=== PATIENT | male | born 1960 ===

== ENCOUNTER 2019-03-29 14:26 | Emergency (ER) | payer SELFPAY ==
[2019-03-29] MEDS ORDERED: RINGERS SOLUTION,LACTATED 1,000 ML IV ONE (14:42)
--- NOTE | 2019-03-29 14:51 | ER Document Report ---
ED General - General Chief Complaint: Altered Mental Status Stated Complaint: ALTERED MENTAL STATUS Time Seen by Provider: 03/29/19 14:37 Mode of Arrival: Medic Information source: Patient, Friend, Emergency Med Personnel Notes: 59-year-old male with hypertension (noncompliant with medications) presents via EMS with altered mental status. The patient's friend came to the house who found the patient confused, altered and called 911. Patient is slow to respond but answers questions appropriately. He is currently complaining of back pain. Patient states that last week he fell outside of [facility] and required help getting up but felt fine otherwise. Unclear whether the patient hit his head or not. He denies any recent illness, vomiting, chest pain, shortness of breath, headache, weakness. Patient does admit to drinking about 4-5 beers per day. He has not drank anything today. He denies any tobacco or drug use. Patient was found on the floor of his home by his friend and now states that he is not sure how long he had been laying there. TRAVEL OUTSIDE OF THE [place] IN LAST 30 DAYS: No - HPI Onset: Other Onset/Duration: Gradual Quality of pain: Achy Severity: Mild Associated symptoms: Body/muscle aches, Slow to respond, Other - Back pain Exacerbated by: Supine, Movement Relieved by: Denies Similar symptoms previously: No Recently seen / treated by doctor: No - Related Data Allergies/Adverse Reactions: No Known Allergies Allergy (Unverified 03/29/19 15:56) Past Medical History - General Information source: Patient, Friend, Emergency Med Personnel - Social History Smoking Status: Current Some Day Smoker Frequency of alcohol use: Heavy Drug Abuse: None Lives with: Alone Family History: Reviewed & Not Pertinent Patient has suicidal ideation: No Patient has homicidal ideation: No - Past Medical History Cardiac Medical History: Reports: Hx Hypertension Review of Systems - Review of Systems Notes: REVIEW OF SYSTEMS: CONSTITUTIONAL : Denies fever, chills, or sweats. Denies recent illness. De nies weight loss, recent hospitalizations. EENT: Denies visual changes, eye pain. Denies sore throat, oral lesions, difficulty swallowing. CARDIOVASCULAR: Denies chest pain. Denies palpitations. Denies lower extremity edema. RESPIRATORY: Denies cough. Denies shortness of breath, wheezing. GASTROINTESTINAL: Denies abdominal pain or distention. Denies nausea, vomiting, or diarrhea. Denies blood in vomitus, stools, or per rectum. Denies black, tarry stools. Denies constipation. GENITOURINARY: Denies difficulty urinating, painful urination, frequency, blood in urine, testicular pain or penile discharge. MUSCULOSKELETAL: Denies neck pain or stiffness. Denies joint pain or swellin g. SKIN: Denies rash, lesions or sores. HEMATOLOGIC : Denies easy bruising or bleeding. LYMPHATIC: Denies swollen glands. NEUROLOGICAL: Denies confusion or altered mental status. Denies loss of consciousness. Denies dizziness or lightheadedness. Denies headache. Denies paralysis. Denies problems difficulty with ambulation, slurred speech. Denies sensory loss, numbness, or tingling. Denies seizures. PSYCHIATRIC: Denies anxiety or stress. Denies depression, suicidal ideation, or Physical Exam - Vital signs Vitals: Resp Pulse Ox 23 H 95 03/29/19 14:35 03/29/19 14:35 - Notes Notes: PHYSICAL EXAMINATION: GENERAL: Disheveled, slow to respond. HEAD: Atraumatic, normocephalic. EYES: Pupils equal round and reactive to light, extraocular movements intact, sclera anicteric, conjunctiva are normal. ENT: Nares patent, oropharynx clear without exudates. Dry mucous membranes. NECK: Normal range of motion, supple without lymphadenopathy LUNGS: Breath sounds clear to auscultation bilaterally and equal. No wheezes rales or rhonchi. HEART: Regular rate and rhythm without murmurs ABDOMEN: Soft, nontender, nondistended abdomen. No guarding, no rebound. No masses appreciated. Musculoskeletal: Normal range of motion, no pitting or edema. No cyanosis. NEUROLOGICAL: Cranial nerves grossly intact. Slowed speech but answers appropriately normal sensory, motor exams PSYCH: Somnolent but arousable SKIN: Warm, Dry, normal turgor, no rashes or lesions noted. Course - Re-evaluation Re-evalutation: Laboratory 03/29/19 03/29/19 03/29/19 07:33 13:55 13:55 WBC Cancelled RBC Cancelled Hgb Cancelled Hct Cancelled MCV Cancelled MCH Cancelled MCHC Cancelled RDW Cancelled Plt Count Cancelled Seg Neutrophils % Cancelled Lymphocytes % Cancelled Monocytes % Cancelled Eosinophils % Cancelled Basophils % Cancelled Absolute Neutrophils Cancelled Absolute Lymphocytes Cancelled Absolute Monocytes Cancelled Absolute Eosinophils Cancelled Absolute Basophils Cancelled Platelet Estimate Cancelled PT 14.1 INR 1.09 D-Dimer VBG pH 7.40 VBG pCO2 20.8 L VBG HCO3 12.6 L VBG Base Excess -9.4 Sodium Potassium Chloride Carbon Dioxide Anion Gap BUN Creatinine Est GFR ( Amer) Est GFR (Non-Af Amer) Glucose Serum Osmolality Lactic Acid Calcium Magnesium Total Bilirubin Direct Bilirubin Neonat Total Bilirubin Neonat Direct Bilirubin Neonat Indirect Bili AST ALT Alkaline Phosphatase Ammonia Creatine Kinase CK-MB (CK-2) Troponin I Total Protein Albumin Urine Color Urine Appearance Urine pH Ur Specific [place] Urine Protein Urine Glucose (UA) Urine Ketones Urine Blood Urine Nitrite Urine Bilirubin Urine Urobilinogen Ur Leukocyte Esterase Urine WBC (Auto) Urine RBC (Auto) Urine Bacteria (Auto) Squamous Epi Cells Auto Amorphous Sediment Auto Urine Mucus (Auto) Urine Osmolality Urine Ascorbic Acid Salicylates Urine Opiates Screen Urine Methadone Screen Acetaminophen Ur Barbiturates Screen Ur Phencyclidine Scrn Ur Amphetamines Screen U Benzodiazepines Scrn Urine Cocaine Screen U Marijuana (THC) Screen Serum Alcohol Slides for Path Review Cancelled 03/29/19 03/29/19 03/29/19 13:55 13:55 15:05 WBC RBC Hgb Hct MCV MCH MCHC RDW Plt Count Seg Neutrophils % Lymphocytes % Monocytes % Eosinophils % Basophils % Absolute Neutrophils Absolute Lymphocytes Absolute Monocytes Absolute Eosinophils Absolute Basophils Platelet Estimate PT INR D-Dimer VBG pH VBG pCO2 VBG HCO3 VBG Base Excess Sodium 129.3 L Potassium 3.5 L Chloride 95 L Carbon Dioxide 16 L Anion Gap 18 BUN 102 H Creatinine 6.33 H Est GFR ( Amer) 11 L Est GFR (Non-Af Amer) 9 L Glucose 104 Serum Osmolality Lactic Acid Calcium 8.5 Magnesium 2.6 H Total Bilirubin 0.9 Direct Bilirubin 0.7 H Neonat Total Bilirubin Not Reportable Neonat Direct Bilirubin Not Reportable Neonat Indirect Bili Not Reportable AST 684 H ALT 391 H Alkaline Phosphatase 79 Ammonia 27.2 Creatine Kinase 441 H CK-MB (CK-2) 5.04 H Troponin I 0.221 Total Protein 6.8 Albumin 3.1 L Urine Color Urine Appearance Urine pH Ur Specific [place] Urine Protein Urine Glucose (UA) Urine Ketones Urine Blood Urine Nitrite Urine Bilirubin Urine Urobilinogen Ur Leukocyte Esterase Urine WBC (Auto) Urine RBC (Auto) Urine Bacteria (Auto) Squamous Epi Cells Auto Amorphous Sediment Auto Urine Mucus (Auto) Urine Osmolality Urine Ascorbic Acid Salicylates < 1.0 L Urine Opiates Screen Urine Methadone Screen Acetaminophen < 10 L Ur Barbiturates Screen Ur Phencyclidine Scrn Ur Amphetamines Screen U Benzodiazepines Scrn Urine Cocaine Screen U Marijuana (THC) Screen Serum Alcohol < 10 Slides for Path Review 03/29/19 03/29/19 03/29/19 15:05 15:05 15:05 WBC RBC Hgb Hct MCV MCH MCHC RDW Plt Count Seg Neutrophils % Lymphocytes % Monocytes % Eosinophils % Basophils % Absolute Neutrophils Absolute Lymphocytes Absolute Monocytes Absolute Eosinophils Absolute Basophils Platelet Estimate PT INR D-Dimer VBG pH VBG pCO2 VBG HCO3 VBG Base Excess Sodium Potassium Chloride Carbon Dioxide Anion Gap BUN Creatinine Est GFR ( Amer) Est GFR (Non-Af Amer) Glucose Serum Osmolality Lactic Acid Calcium Magnesium Total Bilirubin Direct Bilirubin Neonat Total Bilirubin Neonat Direct Bilirubin Neonat Indirect Bili AST ALT Alkaline Phosphatase Ammonia Creatine Kinase CK-MB (CK-2) Troponin I Total Protein Albumin Urine Color YELLOW Urine Appearance CLEAR Urine pH 6.0 Ur Specific [place] 1.013 Urine Protein >=500 H Urine Glucose (UA) NEGATIVE Urine Ketones NEGATIVE Urine Blood LARGE H Urine Nitrite NEGATIVE Urine Bilirubin NEGATIVE Urine Urobilinogen NEGATIVE Ur Leukocyte Esterase NEGATIVE Urine WBC (Auto) 2 Urine RBC (Auto) 2 Urine Bacteria (Auto) TRACE Squamous Epi Cells Auto 1 Amorphous Sediment Auto TRACE Urine Mucus (Auto) RARE Urine Osmolality 376 Urine Ascorbic Acid NEGATIVE Salicylates Urine Opiates Screen NEGATIVE Urine Methadone Screen NEGATIVE Acetaminophen Ur Barbiturates Screen NEGATIVE Ur Phencyclidine Scrn NEGATIVE Ur Amphetamines Screen NEGATIVE U Benzodiazepines Scrn NEGATIVE Urine Cocaine Screen NEGATIVE U Marijuana (THC) Screen UNCONFIRMED POSITIVE Serum Alcohol Slides for Path Review 03/29/19 03/29/19 03/29/19 15:37 15:37 17:19 WBC 4.6 RBC 4.14 L Hgb 14.7 Hct 41.7 MCV 101 H MCH 35.5 H MCHC 35.3 RDW 14.1 H Plt Count 20 L* Seg Neutrophils % 65.0 Lymphocytes % 26.4 Monocytes % 7.8 Eosinophils % 0.0 Basophils % 0.8 Absolute Neutrophils 3.0 Absolute Lymphocytes 1.2 Absolute Monocytes 0.4 Absolute Eosinophils 0.0 Absolute Basophils 0.0 Platelet Estimate PT INR D-Dimer 3.17 H VBG pH VBG pCO2 VBG HCO3 VBG Base Excess Sodium Potassium Chloride Carbon Dioxide Anion Gap BUN Creatinine Est GFR ( Amer) Est GFR (Non-Af Amer) Glucose Serum Osmolality Lactic Acid 1.8 Calcium Magnesium Total Bilirubin Direct Bilirubin Neonat Total Bilirubin Neonat Direct Bilirubin Neonat Indirect Bili AST ALT Alkaline Phosphatase Ammonia Creatine Kinase CK-MB (CK-2) Troponin I Total Protein Albumin Urine Color Urine Appearance Urine pH Ur Specific [place] Urine Protein Urine Glucose (UA) Urine Ketones Urine Blood Urine Nitrite Urine Bilirubin Urine Urobilinogen Ur Leukocyte Esterase Urine WBC (Auto) Urine RBC (Auto) Urine Bacteria (Auto) Squamous Epi Cells Auto Amorphous Sediment Auto Urine Mucus (Auto) Urine Osmolality Urine Ascorbic Acid Salicylates Urine Opiates Screen Urine Methadone Screen Acetaminophen Ur Barbiturates Screen Ur Phencyclidine Scrn Ur Amphetamines Screen U Benzodiazepines Scrn Urine Cocaine Screen U Marijuana (THC) Screen Serum Alcohol Slides for Path Review 03/29/19 03/29/19 17:19 17:19 WBC RBC Hgb Hct MCV MCH MCHC RDW Plt Count Seg Neutrophils % Lymphocytes % Monocytes % Eosinophils % Basophils % Absolute Neutrophils Absolute Lymphocytes Absolute Monocytes Absolute Eosinophils Absolute Basophils Platelet Estimate PT INR D-Dimer VBG pH VBG pCO2 VBG HCO3 VBG Base Excess Sodium Potassium Chloride Carbon Dioxide Anion Gap BUN Creatinine Est GFR ( Amer) Est GFR (Non-Af Amer) Glucose Serum Osmolality 301 Lactic Acid Calcium Magnesium Total Bilirubin Direct Bilirubin Neonat Total Bilirubin Neonat Direct Bilirubin Neonat Indirect Bili AST ALT Alkaline Phosphatase Ammonia Creatine Kinase CK-MB (CK-2) Troponin I 0.257 Total Protein Albumin Urine Color Urine Appearance Urine pH Ur Specific [place] Urine Protein Urine Glucose (UA) Urine Ketones Urine Blood Urine Nitrite Urine Bilirubin Urine Urobilinogen Ur Leukocyte Esterase Urine WBC (Auto) Urine RBC (Auto) Urine Bacteria (Auto) Squamous Epi Cells Auto Amorphous Sediment Auto Urine Mucus (Auto) Urine Osmolality Urine Ascorbic Acid Salicylates Urine Opiates Screen Urine Methadone Screen Acetaminophen Ur Barbiturates Screen Ur Phencyclidine Scrn Ur Amphetamines Screen U Benzodiazepines Scrn Urine Cocaine Screen U Marijuana (THC) Screen Serum Alcohol Slides for Path Review Chest X-Ray 03/29/19 14:43 IMPRESSION: NO ACUTE RADIOGRAPHIC FINDING IN THE CHEST. Head CT 03/29/19 14:44 IMPRESSION: White matter disease. No acute findings EVIDENCE OF ACUTE STROKE: NO. Lumbar Spine CT 03/29/19 14:46 IMPRESSION: No acute changes Temp Pulse Resp BP Pulse Ox 98.8 F 23 H 107/76 91 L 03/29/19 20:01 03/29/19 20:01 03/29/19 20:01 03/29/19 17:00 03/29/19 14:51 59-year-old male presents via EMS after a friend found him altered at home. Unclear how long patient has been altered. He is a poor informant. Currently only complaining of back pain. He does state that he had a fall last week at [facility] and it is unclear of whether or not the patient hit his head or loss consciousness. There is no evidence of trauma on exam. 03/29/19 15:46 Patient found to be in acute renal failure. We do not have nephrology on at this time. Awaiting patient's answer of where he would like to be transferred. 03/29/19 16:44 Patient will require nephrology and ICU level care. He is requesting transfer to [facility] which has been contacted. 03/29/19 16:53 I did speak to the remote sensing advisor at [facility] who is concerned that the patient may have TTP and will require have a higher level of care. I will contact [facility] next. 03/29/19 21:31 Patient was accepted to [facility] by . Patient evaluated upon transfer team arrival and he is alert, awake and asking for something to drink. He is stable for transfer. - Vital Signs Vital signs: Temp Pulse Resp BP Pulse Ox 98.8 F 23 H 107/76 91 L 03/29/19 20:01 03/29/19 20:01 03/29/19 20:01 03/29/19 17:00 - Laboratory Result Diagrams: 03/29/19 15:37 03/29/19 13:55 Laboratory results interpreted by me: 03/29/19 03/29/19 03/29/19 07:33 13:55 13:55 RBC MCV MCH RDW Plt Count D-Dimer VBG pCO2 20.8 L VBG HCO3 12.6 L Sodium 129.3 L Potassium 3.5 L Chloride 95 L Carbon Dioxide 16 L BUN 102 H Creatinine 6.33 H Est GFR ( Amer) 11 L Est GFR (Non-Af Amer) 9 L Magnesium 2.6 H Direct Bilirubin 0.7 H AST 684 H ALT 391 H Creatine Kinase 441 H CK-MB (CK-2) 5.04 H Albumin 3.1 L Urine Protein Urine Blood Salicylates < 1.0 L Acetaminophen < 10 L 03/29/19 03/29/19 03/29/19 15:05 15:37 15:37 RBC 4.14 L MCV 101 H MCH 35.5 H RDW 14.1 H Plt Count 20 L* D-Dimer 3.17 H VBG pCO2 VBG HCO3 Sodium Potassium Chloride Carbon Dioxide BUN Creatinine Est GFR ( Amer) Est GFR (Non-Af Amer) Magnesium Direct Bilirubin AST ALT Creatine Kinase CK-MB (CK-2) Albumin Urine Protein >=500 H Urine Blood LARGE H Salicylates Acetaminophen - Diagnostic Test Radiology reviewed: Image reviewed, Reports reviewed - EKG Interpretation by Me EKG shows normal: Sinus rhythm Rate: Tachycardia Rhythm: NSR When compared to previous EKG there are: Previous EKG unavailable Critical Care Note - Critical Care Note Total time excluding time spent on procedures (mins): 45 - Minutes of critical care time spent in direct contact evaluating and reevaluating the patient, treating symptoms, reviewing labs and studies and speaking with family and consultants excluding any procedures Discharge - Discharge Clinical Impression: Multiorgan failure, Thrombocytopenia, Elevated liver enzymes, Elevated troponin, Metabolic acidosis Renal failure Qualifiers: Renal failure chronicity: acute Acute renal failure type: unspecified Qualified Code(s): N17.9 - Acute kidney failure, unspecified Altered mental status Qualifiers: Altered mental status type: unspecified Qualified Code(s): R41.82 - Altered mental status, unspecified Condition: Stable Disposition: [facility]
[2019-03-29 15:10] LABS: ALANINE AMINOTRANSFERASE 391 U/L (21-72); ALBUMIN 3.1 g/dL (3.5-5.0); ALKALINE PHOSPHATASE 79 U/L (38-126); ANION GAP 18 (5-19); ASPARTATE AMINO TRANSFERASE 684 U/L (17-59); BILIRUBIN,DIRECT 0.7 mg/dL (0.0-0.4); BILIRUBIN,TOTAL 0.9 mg/dL (0.2-1.3); BLOOD UREA NITROGEN 102 mg/dL (7-20); CALCIUM 8.5 mg/dL (8.4-10.2); CARBON DIOXIDE 16 mmol/L (22-30); CHLORIDE 95 mmol/L (98-107); CREATINE KINASE 441 U/L (55-170); GLUCOSE 104 mg/dL (75-110); POTASSIUM 3.5 mmol/L (3.6-5.0); SODIUM 129.3 mmol/L (137-145); TOTAL PROTEIN 6.8 g/dL (6.3-8.2)
[2019-03-29 15:13] LABS: INTERNATIONAL RATION (INR) 1.09; PROTHROMBIN TIME 14.1 SEC (11.4-15.4)
[2019-03-29 15:16] LABS: ACETAMINOPHEN < 10 ug/mL (10-30); ALCOHOL < 10 mg/dL (NONE DETECTED); SALICYLATE < 1.0 mg/dL (2.0-20.0)
[2019-03-29 15:21] LABS: CREATINE KINASE MB 5.04 ng/mL (<4.55)
[2019-03-29 15:21] LABS: VENOUS BLOOD BASE EXCESS -9.4 mmol/L; VENOUS BLOOD HCO3 12.6 mmol/L (20-32); VENOUS BLOOD PCO2 20.8 mmHg (35-63); VENOUS BLOOD PH 7.4 (7.30-7.42)
[2019-03-29] MEDS ORDERED: ONDANSETRON HCL INJ/PF 4 MG/2 ML SDV IV ONE ×2 (15:24→20:42)
[2019-03-29] MEDS ORDERED: NORMAL SALINE 1000 ML 1,000 ML IV ONE ×2 (15:24→18:43)
[2019-03-29 15:25] LABS: TROPONIN I 0.221 ng/mL
[2019-03-29 15:30] LABS: AMORPHOUS SEDIMENT,URINE TRACE /HPF
[2019-03-29 15:43] LABS: URINE AMPHETAMINES SCREEN NEGATIVE; URINE BARBITURATES SCREEN NEGATIVE; URINE BENZODIAZEPINES SCREEN NEGATIVE; URINE COCAINE SCREEN NEGATIVE; URINE MARIJUANA (THC) SCREEN UNCONFIRMED POSITIVE; URINE METHADONE SCREEN NEGATIVE; URINE PHENCYCLIDINE SCREEN NEGATIVE
[2019-03-29 15:45] LABS: APPEARANCE,URINE CLEAR; COLOR,URINE YELLOW
[2019-03-29] MEDS ORDERED: METOPROLOL TARTRATE PF/INJ 5 MG/5 ML SDV IV ONE (15:45)
[2019-03-29 15:46] LABS: BILIRUBIN,URINE NEGATIVE (NEGATIVE); GLUCOSE, URINE NEGATIVE (NEGATIVE); KETONES,URINE NEGATIVE (NEGATIVE); NITRITE,URINE NEGATIVE (NEGATIVE); PROTEIN,URINE >=500 mg/dL (NEGATIVE); URINE SPECIFIC GRAVITY 1.013; UROBILINOGEN,URINE NEGATIVE mg/dL (<2.0)
[2019-03-29 15:47] LABS: LEUKOCYTE ESTERASE,URINE NEGATIVE (NEGATIVE)
[2019-03-29 16:06] LABS: ABSOLUTE LYMPHOCYTES (AUTO) 1.2 10^3/uL (0.5-4.7); ABSOLUTE MONOCYTES (AUTO) 0.4 10^3/uL (0.1-1.4); BASOPHILS % (AUTO) 0.8 % (0-2); HEMATOCRIT 41.7 % (37.9-51.0); HEMOGLOBIN 14.7 g/dL (13.5-17.0); LYMPHOCYTES % (AUTO) 26.4 % (13-45); MEAN CORPUSCULAR HEMOGLOBIN 35.5 pg (27.0-33.4); MEAN CORPUSCULAR HGB CONC 35.3 g/dL (32.0-36.0); MEAN CORPUSCULAR VOLUME 101 fl (80-97); MONOCYTES % (AUTO) 7.8 % (3-13); RED BLOOD COUNT 4.14 10^6/uL (4.35-5.55); RED CELL DISTRIBUTION WIDTH 14.1 % (11.5-14.0); TOTAL CELLS COUNTED % (AUTO) 100 %; WHITE BLOOD COUNT 4.6 10^3/uL (4.0-10.5)
--- NOTE | 2019-03-29 16:13 | RADIOLOGY REPORT (SQ) ---
EXAM DESCRIPTION: CT HEAD WITHOUT COMPLETED DATE/TIME: 03/29/2019 4:04 pm REASON FOR STUDY: ams COMPARISON: None. TECHNIQUE: Axial images acquired through the brain without intravenous contrast. Images reviewed wi th bone, brain and subdural windows. Additional sagittal and coronal reconstructions were generated. Images stored on PACS. All CT scanners at this facility use dose modulation, iterative reconstruction, and/or weight based d osing when appropriate to reduce radiation dose to as low as reasonably achievable (ALARA). [facility]: Dose Right [facility]: CareDose [facility]: Dose Right [facility]: Teradose 4D [facility]: Smart Telinet RADIATION DOSE: CT Rad equipment meets quality standard of care and radiation dose reduction techniq ues were employed. CTDIvol: 53.2 mGy. DLP: 1150 mGy-cm. mGy. LIMITATIONS: None. FINDINGS: VENTRICLES: Normal size and contour. CEREBRUM: No CT evidence of acute large territory ischemic change, acute intracranial hemorrhage, mas s effect, or midline shift. Moderate bifrontal and biparietal chronic small vessel ischemic change in the hemispheric white matter. CEREBELLUM: Moderate pontine small vessel ischemic change. No posterior fossa acute hemorrhage mass effect or shift. No gross posterior fossa acute ischemic change EXTRAAXIAL SPACES: No fluid collections. No masses. ORBITS AND GLOBE: No intra- or extraconal masses. Normal contour of globe without masses. CALVARIUM: No fracture. PARANASAL SINUSES: No fluid or mucosal thickening. SOFT TISSUES: No mass or hematoma. OTHER: No other significant finding. IMPRESSION: White matter disease. No acute findings EVIDENCE OF ACUTE STROKE: NO. COMMENT: Quality ID # [id number]: Final reports with documentation of one or more dose reduction techniques (e.g., Automated exposure control, adjustment of the mA and/or kV according to patient size, use of iterative reconstruction technique) TECHNICAL DOCUMENTATION: JOB ID: [id number] [email or web address]- All Rights Reserved Reading location - IP/workstation name: [email or web address]
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
--- NOTE | 2019-03-29 16:21 | RADIOLOGY REPORT (SQ) ---
EXAM DESCRIPTION: CHEST SINGLE VIEW COMPLETED DATE/TIME: 03/29/2019 4:06 pm REASON FOR STUDY: ams COMPARISON: None. EXAM PARAMETERS: NUMBER OF VIEWS: One view. TECHNIQUE: Single frontal radiographic view of the chest acquired. RADIATION DOSE: NA LIMITATIONS: None. FINDINGS: LUNGS AND PLEURA: No opacities, masses or pneumothorax. No pleural effusion. MEDIASTINUM AND HILAR STRUCTURES: No masses. Contour normal. HEART AND VASCULAR STRUCTURES: Heart normal in size. Normal vasculature. BONES: No acute findings. HARDWARE: None in the chest. OTHER: No other significant finding. IMPRESSION: NO ACUTE RADIOGRAPHIC FINDING IN THE CHEST. TECHNICAL DOCUMENTATION: JOB ID: [id number] [employer]- All Rights Reserved Reading location - IP/workstation name: [email or web address]
[2019-03-29 16:38] LABS: PLATELET COUNT 20 10^3/uL (150-450)
--- NOTE | 2019-03-29 19:13 | EKG REPORT ---
SEVERITY:- ABNORMAL ECG - SINUS TACHYCARDIA MULTIPLE PVCs LEFT AXIS DEVIATION CONSIDER ANTERIOR INFARCT : Confirmed by: Angel Aguilera 29-Mar-2019 19:13:21
--- NOTE | 2019-03-29 19:14 | EKG REPORT ---
SEVERITY:- ABNORMAL ECG - SINUS TACHYCARDIA MULTIFORM VENTRICULAR PREMATURE COMPLEXES APCs NOTED : Confirmed by: Angel Aguilera 29-Mar-2019 19:13:55
[2019-03-29 20:30] VITALS: BP 107/76
== END 2019-03-29 20:55 | disposition short-term general hospital (02) ==
LOC: ER 14:26
DX: D69.6 Thrombocytopenia, unspecified (principal); R74.8 Abnormal levels of other serum enzymes; R79.89 Other specified abnormal findings of blood chemistry; E87.2 Acidosis; N17.9 Acute kidney failure, unspecified; R41.82 Altered mental status, unspecified; M54.9 Dorsalgia, unspecified; F17.200 Nicotine dependence, unspecified, uncomplicated; I10 Essential (primary) hypertension
CPT/HCPCS: 93005; 96376; 99285; 96361; 96374; 36415; 87040; 87086; 82553; 80307 ×4; 82140; 82550; 83735; 83930; 83935; 85025; 85610; 87077; 80053; 81001; 84484; 87186; 85379; 82803; 83605; 71045; 70450; 72131; 93010; J2405; J7030; J7120